=== PATIENT | female | born 1980 | race Caucasian/White ===

== ENCOUNTER 2016-12-18 15:43 | Inpatient (IN) | payer OTHER ==
[~2016-12-18] VITALS: Ht 160 cm; Wt 60.2 kg
[2016-12-18] MEDS ORDERED: LIPA1CAP4 PO (16:12)
[2016-12-18] MEDS ORDERED: IMO2 PO (16:20)
[2016-12-18] MEDS ORDERED: METH10TA2 PO (16:20)
[2016-12-18] MEDS ORDERED: AMOX1TAB9 PO (16:20)
[2016-12-18] MEDS ORDERED: UDLOM GTB (16:20)
[2016-12-18] MEDS ORDERED: FERR325T5 PO (16:21)
[2016-12-18] MEDS ORDERED: PRENAT PO (16:21)
[2016-12-18 16:22] VITALS: BP 109/63; PULSE 64; RESP 18
[2016-12-18 16:25] VITALS: BMI 23.5
[2016-12-18] MEDS ORDERED: LACTATED RINGER'S 1,000 ML IV SCH ×2 (16:30→20:50)
[2016-12-18] MEDS ORDERED: TERBUTALINE 1 MG/ML INJ SC ONE ×2 (16:30→18:00)
--- NOTE | 2016-12-18 16:52 | RADRPT ---
PROCEDURE: CERVICAL LENGTH ULTRASOUND CLINICAL INDICATION: labor at 33 weeks gestational age. TECHNIQUE: Trans-vaginal imaging of the cervical canal was performed utilizing blackman-scale imaging. Sagittal and transverse images were obtained. Trans-abdominal images were also obtained. The khadra ges were reviewed on a PACS workstation. COMPARISON: None. FINDINGS: There is a single live intrauterine . heart rate is 118 beats per minute. Position is cephalic and placenta is posterior fundal grade II. There is no placenta previa. The cervix is closed with a length of 3.8 cm. IMPRESSION: 1. Cervical length is 3.8 cough for cm. RPTAT: QQ .Nikhil Vanegas MD, Date Time Electronically viewed and signed by .Nikhil Vanegas MD, on 12/18/2016 16:52 .R/
--- NOTE | 2016-12-18 20:29 | TRIAGE ---
OB Triage Datetime Report Generated by CPN: 12/18/2016 20:28 Datetime: 12/18/2016 19:54 Vaginal Exam Membrane Status: Intact Datetime: 12/18/2016 19:20 Stage of : OB Triage Maternal Assessment Level of Consciousness: Fully Conscious Headache: Denies Blurred Vision: No Nausea/Vomiting: Denies RUQ Epigastric Pain: Denies Labor Evaluation Frequency: 3-10 Monitor Mode: External Duration (sec)2399: 30-60 Quality: Mild Pattern: Normal: <= 5 Contractions in 10 Minutes Resting Tone [place]: Relaxed Heart Rate FHR Baseline Rate: 130 Monitor Mode: External US FHR Baseline Changes: No Baseline Change Variability: Moderate 6-25 bpm Accelerations: 15X15 Decelerations: None Category: Category I Pain Assessment Pain Scale: 0 Pain Presence: None/Denies Pain Type: N/A Datetime: 12/18/2016 18:05 Labor Evaluation Frequency: 10-12 Monitor Mode: External Duration (sec)2399: 30-50 Quality: Mild Pattern: Normal: <= 5 Contractions in 10 Minutes Resting Tone [place]: Relaxed Heart Rate FHR Baseline Rate: 135 Monitor Mode: External US Variability: Moderate 6-25 bpm Decelerations: None Category: Category I Pain Assessment Pain Scale: 10 Pain Presence: Intermittent Pain Type: Cramping; Contraction Pain Goal: 3 Pain Relief Measures: Comfort Measures Datetime: 12/18/2016 17:38 Stage of : OB Triage Datetime: 12/18/2016 17:05 Labor Evaluation Frequency: 10-12 Monitor Mode: External Duration (sec)2399: 30-50 Quality: Mild Pattern: Normal: <= 5 Contractions in 10 Minutes Resting Tone [place]: Relaxed Heart Rate FHR Baseline Rate: 135 Monitor Mode: External US Variability: Moderate 6-25 bpm Decelerations: None Category: Category I Pain Assessment Pain Scale: 0 Pain Presence: Intermittent Pain Type: Cramping Pain Location: Abdomen Pain Goal: 3 Pain Relief Measures: Comfort Measures Datetime: 12/18/2016 16:10 Assessment Type: Triage Maternal Assessment Level of Consciousness: Fully Conscious DTR's/Clonus: DTRs 2+; No Clonus Headache: Denies Blurred Vision: No Respiratory Effort: Unlabored; Regular Rhythm; Equal Expansion Breath Sounds, Left: Clear and Equal Breath Sounds, Right: Clear and Equal Nausea/Vomiting: Denies RUQ Epigastric Pain: Denies Lower Extremities Edema: None Degree: None Upper Extremities Edema: None Degree: None Facial Edema: None Fall Risk Assessment History of Falling: (0) No Secondary Diagnosis: (0) No Ambulatory Aid: (0) Bedrest/Nurse Assist IV Therapy: (0) No Gait: (0) Normal/Bedrest/Immobile Mental Status: (0) Oriented to Own Ability Fall Score: 0 Fall Risk Score Definition: No Risk: No action required Datetime: 12/18/2016 16:04 Stage of : OB Triage Time of Arrival: 12/18/2016 15:40 EGA: 33.3 Arrived By: Ambulatory Arrived From: Other Unit in Hospital Chief Complaint: PT SENT IN FROM NST FOR R/O PTL Movement: Present Contractions: Denies/Absent Rupture of Membranes: Denies Vaginal Bleeding: None Vaginal Discharge: Denies Recent Sexual Intercouse: Denies Abdominal Trauma: Not Applicable Patient Complaints: Cramping; Back Pain Time Provider Notified: 12/18/2016 16:10 Provider Notified: EMMANUEL Initial Plan: IV HYDRATION/CVL/TERB/
[2016-12-18] MEDS: NIFEdipine 10 MG CAP PO SCH (21:41)
[2016-12-18] MEDS: BETAMET NA PHOS/AC(6 MG/ML) 5ML INJ IM SCH (21:41)
[2016-12-19] MEDS ORDERED: DIPHENOXYLATE/ATROPINE TAB PO PRN (01:00)
[2016-12-19] MEDS: METHADONE 10 MG TAB PO SCH ×4 (02:47→21:12)
[2016-12-19] MEDS: NIFEdipine 10 MG CAP PO SCH ×2 (03:32→09:10)
[2016-12-19] MEDS ORDERED: CREON (12k-38k-60k) 1 CAP PO SCH (07:35)
[2016-12-19] MEDS: CREON (12k-38k-60k) 1 CAP PO SCH ×4 (08:50→17:41)
[2016-12-19] MEDS ORDERED: MAGNESIUM SULFATE 4 GM/100 ML 100 ML ONE (10:12)
[2016-12-19] MEDS ORDERED: MAGNESIUM SULFATE 4 GM/100 ML 100 ML IV SCH (10:30)
[2016-12-19] MEDS: LACTATED RINGER'S 1,000 ML IV SCH ×2 (11:07→23:21)
[2016-12-19] MEDS: MAGNESIUM SULFATE 20 GM/500 ML 500 ML IV SCH ×2 (11:30→21:11)
[2016-12-19 17:41] LABS: ADD UMIC YES; URINE BILIRUBIN (Dip) NEGATIVE (NEGATIVE); URINE BLOOD (Dip) TRACE (NEGATIVE); URINE COLOR LT. YELLOW (YELLOW); URINE GLUCOSE (Dip) NEGATIVE (NEGATIVE); URINE KETONES (Dip) TRACE (NEGATIVE); URINE LEUKOCYTE ESTERASE (Dip) NEGATIVE (NEGATIVE); URINE NITRITE (Dip) NEGATIVE (NEGATIVE); URINE TOTAL PROTEIN (Dip) NEGATIVE (NEGATIVE); URINE UROBILINOGEN (Dip) 0.2 E.U./dL (0.1-1.0)
[2016-12-19 18:17] LABS: SQUAMOUS EPITHELIAL CELL,UR RARE; URINE RBCS 0-2 /HPF (0)
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
--- NOTE | 2016-12-19 20:11 | PN ---
Date/Time of Note Date/Time of Note DATE: 12/19/16 TIME: 20:10 OB Subjective Subjective Subjective No more C/O UCs OB Objective Objective Objective VSS P/E: NL on EFM minimal UCs seen OB Assessment/Plan Reason for admission: labor Other Assessment: 33 + weeks gestation Other plan: continue on magnesium sulfate JAY JONES MD Dec 19, 2016 20:11
[2016-12-19] MEDS: BETAMET NA PHOS/AC(6 MG/ML) 5ML INJ IM SCH (21:14)
[2016-12-20] MEDS: MAGNESIUM SULFATE 20 GM/500 ML 500 ML IV SCH (07:24)
[2016-12-20] MEDS: CREON (12k-38k-60k) 1 CAP PO SCH (08:38)
--- NOTE | 2016-12-20 14:08 | RADRPT ---
PROCEDURE: US OB biophysical profile. CLINICAL INDICATION: evaluation TECHNIQUE: Multiple sonographic images of the pelvis were obtained. The images were reviewed on a PACS workstation. COMPARISON: Obstetrical ultrasound from 12/18/2016 FINDINGS: There is a single viable intrauterine gestation. Cardiac activity is present with 105 beats per min zuleika. There is a vertex presentation. The placenta is fundal. There is no evidence of placental abruption. There is a normal amount of amniotic fluid with an SANDRINE = 12.3 cm. Biophysical profile: movement 2/2 tone 2/2. breathing 2/2 SANDRINE 2/2 Total 07/02 RPTAT: AA . IMPRESSION: Normal biophysical profile. Normal SANDRINE. Physician Justin Date Time Electronically viewed and signed by Physician Justin on 12/20/2016 14:07 /
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
[2016-12-20] MEDS ORDERED: LACTATED RINGER'S 1,000 ML IV SCH (14:56)
[2016-12-20] MEDS ORDERED: OXYTOCIN 30 UNITS/LR 500 ML IV PRN ×2 (15:00→23:30)
[2016-12-20] MEDS ORDERED: METHYLERGONOVINE 0.2 MG INJ IM PRN ×2 (15:00→23:30)
[2016-12-20] MEDS ORDERED: MISOPROSTOL 200 MCG TAB PR PRN ×2 (15:00→23:30)
[2016-12-20] MEDS ORDERED: CARBOPROST 250 MCG INJ IM PRN ×2 (15:00→23:30)
[2016-12-20] MEDS ORDERED: OXYTOCIN 30 UNITS/LR 500 ML IV SCH (15:00)
[2016-12-20] MEDS ORDERED: CEFAZOLIN 2 GM/50 ML (PMX) 50 ML IV SCH (15:00)
[2016-12-20 15:28] VITALS: Ht 160 cm; Wt 60.2 kg
[2016-12-20 16:33] LABS: INR 0.99; PROTIME 13.1 Sec (12.2-14.2)
[2016-12-20 16:34] LABS: PARTIAL THROMBOPLASTIN TIME 22.4 Sec (25.0-35.0)
[2016-12-20 16:37] LABS: BASOPHILS % 0.1 % (0.0-2.0); EOSINOPHILS % 0.1 % (0.0-7.0); HEMATOCRIT 34.5 % (37.0-47.0); HEMOGLOBIN 11.7 g/dl (12.0-16.0); LYMPHOCYTES # 1.1 10^3/ul (0.8-2.9); LYMPHOCYTES % 13.5 % (15.0-51.0); MEAN CORPUSCULAR HGB CONC 33.9 g/dl (32.0-37.0); MEAN CORPUSCULAR VOLUME 91.5 fl (82.0-101.0); MEAN PLATELET VOLUME 9.3 fl (7.4-10.4); MONOCYTE # 0.5 10^3/ul (0.3-0.9); MONOCYTES % 5.9 % (0.0-11.0); NEUTROPHIL # 6.8 10^3/ul (1.6-7.5); NEUTROPHILS % 80.4 % (39.0-77.0); PLATELET COUNT 149 10^3/UL (140-440); RED BLOOD COUNT 3.77 10^6/ul (4.20-5.40); RED CELL DISTRIBUTION WIDTH 12.1 % (11.5-14.5); UNCORRECTED WBC 8.5 10^3/ul (4.8-10.8); WHITE BLOOD COUNT 8.5 10^3/ul (4.8-10.8)
[2016-12-20 16:38] LABS: CONDITION 1
[2016-12-20] MEDS ORDERED: FENTAnyl 50 MCG/ML VIAL ONE (17:55)
[2016-12-20] MEDS ORDERED: PHENYLephrine (100 MCG/ML) 5ML SYG ONE (17:55)
[2016-12-20] MEDS ORDERED: morphine SULFATE/PF (10 MG/10 ML) INJ ONE (17:55)
[2016-12-20] MEDS ORDERED: LIDOCAINE 1% (MDV) 20 ML INJ ONE (17:57)
--- NOTE | 2016-12-20 18:07 | QN ---
Documentation Comment patient had perinatology consult who recommended to proceed with delivering the baby via section. FHTs have low baseline and perinatologist remains concerned about the baseline and recommending delivery LALITO. will proceed with primary C/S JAY JONES MD Dec 20, 2016 18:07
--- NOTE | 2016-12-20 19:04 | RADRPT ---
PROCEDURE: XR Chest. CLINICAL INDICATION: New right central venous line in place. TECHNIQUE: Single frontal view of the chest was obtained COMPARISON: None FINDINGS: New right central venous line in place with tip in the superior vena cava. The heart and mediastinum are within normal limits. The lungs are clear. There is no pleural effusion or pneumothorax. IMPRESSION: New right central venous line in place with tip in the superior vena cava. RPTAT: UU Physician Jania Date Time Electronically viewed and signed by Physician Jania on 12/20/2016 19:04 RS/
--- NOTE | 2016-12-20 19:48 | OPR ---
Operative Report Planned Procedure Procedure date Dec 20, 2016 Procedure(s) primary C/S Performed by: JAY JONES MD Assisting provider: JESUS BRANCH MD Anesthesiologist: AMAIRANI GARCIA DO Pre-procedure diagnosis 33 + weeks labor category 2-3 FHTs Anesthesia Type: spinal Procedure Description Under satisfactory anaesthesia a Pfannenstiel incision was made two fingerbreadth above and parallel to the symphysis of pubis. Incision was extended laterally to the border of the Recti muscles on either sides. Incision was carried down with sharp and blunt dissection until fascia was reached. Anterior Recti muscle fascia was incised in mid portion and incision extended laterally to the border of skin incision. Fascia was mobilized from muscle superiorly and Recti muscles were from midline using sharp and blunt dissection. Peritoneum was visualized; Avoiding bowel and bladder it was incised . Incision was extended superiorly and inferiorly. Bladder blade was placed. Posterior peritoneum covering the lower segment of the uterus and lower segment of the uterus were incised. Incision was extended laterally to the border of Round Lig. on either sides and baby was delivered from OP. position . Amniotic fluid appeared clear. Cord blood was obtained and cord had 3 vessels . Placenta was delivered spontaneously and appeared intact and complete. Intrauterine cavity was rubbed with a laparotomy sponge. Uterine incision was closed in 2 layers using running stitches of No1 Monocryl. Hemostasis appeared secure. Ovaries and Fallopian tubes were within normal limits. Announcing needle, lap sponge and instrument count to be correct abdomen was closed in layers as follows: Peritoneum and Recti muscles with running stitches of 20 Vicryl. Fascia with running stitch of No 1 PDS. Subcutaneous tissue with running stitches of 20 Chromic and skin was closed using val. Patient tolerated the procedure well and was transferred to [facility] in good condition. Post-Procedure Post-procedure diagnosis S/P C/S Findings: Live Baby Specimen removed: No Complications: None Pt Condition post procedure: stable Disposition: PACU Physician Certification I, the undersigned physician, hereby certify that I have discussed the procedure described in this consent form with this patient (or the patient's legal community health representative), including: * The risk and benefits of the procedure; * Any adverse reactions that may reasonably be expected to occur; * Any alternative efficacious methods of treatment which may be medically viable ; * The potential problems that may occur during recuperation; * Potential for blood transfusion and associated risks/benefits; and * Any research or economic interest I may have regarding this treatment. I further certify that the patient/legally responsible person was encouraged to ask question and that all questions were answered. JAY JONES MD Dec 20, 2016 19:48
[2016-12-20 20:08] LABS: POTASSIUM 3.3 mmol/L (3.5-5.1)
[2016-12-20 20:10] LABS: CREATININE 0.49 mg/dl (0.44-1.00)
[2016-12-20 20:11] LABS: CALCIUM 6.7 mg/dl (8.4-10.2)
[2016-12-20] MEDS ORDERED: ONDANSETRON 4 MG INJ IV PRN (20:30)
[2016-12-20] MEDS ORDERED: HYDROmorphONE 1 MG/ML SYG IV PRN ×2 (20:30)
[2016-12-20] MEDS ORDERED: DIPHENHYDRAMINE 50 MG INJ IV PRN (20:30)
[2016-12-20] MEDS ORDERED: NALOXONE (0.4 MG/ML) INJ IV PRN (20:30)
[2016-12-20] MEDS ORDERED: ZOLPIDEM 5 MG TAB PO PRN (20:30)
[2016-12-20] MEDS: KETOROLAC 30 MG INJ IV PRN (22:08)
[2016-12-20] MEDS: METHADONE 10 MG TAB PO SCH (22:30)
[2016-12-20] MEDS ORDERED: LANOLIN 7 GM TUBE TOP PRN (23:30)
[2016-12-20] MEDS ORDERED: NA PHOSPHATE/BIPHOS 133 ML ENEMA PR PRN (23:30)
[2016-12-20] MEDS ORDERED: ACETAMINOPHEN/CODEINE #3 TAB PO PRN (23:30)
[2016-12-21] VITALS (8 sets, daily range): BP systolic 96–114; BP diastolic 53–71; PULSE 56–60; RESP 16–20
[2016-12-21] MEDS: CEFAZOLIN 2 GM/50 ML (PMX) 50 ML IV SCH ×3 (00:29→15:56)
[2016-12-21] MEDS: LACTATED RINGER'S 1,000 ML IV SCH ×4 (02:36→23:21)
[2016-12-21] MEDS: CLINDAMYCIN 300 MG CAP PO SCH ×4 (05:35→17:54)
[2016-12-21] MEDS: IBUPROFEN 800 MG TAB PO SCH ×3 (05:37→22:08)
[2016-12-21] MEDS: CREON (12k-38k-60k) 1 CAP PO SCH ×3 (07:54→17:55)
[2016-12-21 07:55] LABS: BASOPHILS % 0.3 % (0.0-2.0); EOSINOPHILS % 0.2 % (0.0-7.0); HEMATOCRIT 30.8 % (37.0-47.0); HEMOGLOBIN 10.5 g/dl (12.0-16.0); LYMPHOCYTES # 1.5 10^3/ul (0.8-2.9); LYMPHOCYTES % 19.7 % (15.0-51.0); MEAN CORPUSCULAR HEMOGLOBIN 31.4 pg (29.0-33.0); MEAN CORPUSCULAR HGB CONC 34.2 g/dl (32.0-37.0); MEAN CORPUSCULAR VOLUME 91.7 fl (82.0-101.0); MEAN PLATELET VOLUME 9.4 fl (7.4-10.4); MONOCYTE # 0.5 10^3/ul (0.3-0.9); MONOCYTES % 6.5 % (0.0-11.0); NEUTROPHIL # 5.7 10^3/ul (1.6-7.5); NEUTROPHILS % 73.3 % (39.0-77.0); PLATELET COUNT 139 10^3/UL (140-440); RED BLOOD COUNT 3.36 10^6/ul (4.20-5.40); RED CELL DISTRIBUTION WIDTH 12.6 % (11.5-14.5); UNCORRECTED WBC 7.7 10^3/ul (4.8-10.8); WHITE BLOOD COUNT 7.7 10^3/ul (4.8-10.8)
[2016-12-21] MEDS: KETOROLAC 30 MG INJ IV PRN ×2 (07:55→14:58)
[2016-12-21 08:01] LABS: CONDITION 1
[2016-12-21] MEDS: MULTIVIT/MIN/FOLATE/IRON/PREN TAB PO SCH (08:09)
[2016-12-21] MEDS: LOPERAMIDE 2 MG CAP PO SCH ×2 (08:11→20:57)
[2016-12-21] MEDS: SENNA/DOCUSATE NA (8.6MG/50MG) TAB PO SCH ×2 (08:12→21:00)
[2016-12-21] MEDS: METHADONE 10 MG TAB PO SCH ×2 (10:10→20:57)
--- NOTE | 2016-12-21 18:26 | PN ---
Date/Time of Note Date/Time of Note DATE: 12/21/16 TIME: 18:25 Assessment/Plan VTE Prophylaxis VTE Prophylaxis Intervention: ambulation Lines/Catheters IV [facility]from [facility] Central Line Assessment/Plan Assessment/Plan POD # 1 S/PC/S will advance diet and ambulate Subjective 24 Hr Interval Summary passing flatus Exam/Review of Systems Vital Signs Vitals Vital Signs Date Time Temp Pulse Resp B/P Pulse Ox O2 Delivery O2 Flow Rate FiO2 12/21/16 16:05 97 21 12/21/16 16:00 98.1 18 111/71 Room Air 12/21/16 12:00 60 Intake and Output 12/20/16 12/20/16 12/21/16 15:00 23:00 07:00 Intake Total 250 ml 725 ml Output Total 1500 ml 280 ml Balance -1250 ml 445 ml Exam Free Text/Dictation Abdomen: soft BS+ Results Result Diagram: 12/21/16 0635 12/20/16 1600 JAY JONES MD Dec 21, 2016 18:26
[2016-12-21] MEDS: OXYCODONE/ACETAMINOPHEN (5/325) TAB PO PRN (20:57)
[2016-12-22] MEDS: CLINDAMYCIN 300 MG CAP PO SCH ×5 (00:06→22:55)
[2016-12-22] MEDS: OXYCODONE/ACETAMINOPHEN (5/325) TAB PO PRN ×2 (03:53→11:35)
[2016-12-22 04:00] VITALS: BP 94/65; PULSE 54; RESP 19
[2016-12-22] MEDS: IBUPROFEN 800 MG TAB PO SCH ×3 (05:27→22:55)
[2016-12-22 07:45] VITALS: BP 115/76; PULSE 66; RESP 18
[2016-12-22] MEDS: CREON (12k-38k-60k) 1 CAP PO SCH ×3 (08:55→18:13)
[2016-12-22] MEDS: LOPERAMIDE 2 MG CAP PO SCH ×2 (08:56→21:00)
[2016-12-22] MEDS: METHADONE 10 MG TAB PO SCH ×2 (08:56→21:07)
[2016-12-22] MEDS: MULTIVIT/MIN/FOLATE/IRON/PREN TAB PO SCH (08:56)
[2016-12-22] MEDS: SENNA/DOCUSATE NA (8.6MG/50MG) TAB PO SCH ×2 (09:00→21:00)
--- NOTE | 2016-12-22 15:08 | DS ---
Date/Time of Note Date/Time of Note home next day DATE: 12/22/16 TIME: 15:06 Obstetrical Discharge Record Final Diagnosis Final Diagnosis: delivered Other Final Diagnosis S/P C/S Section Section: Primary Primary Indication category 3 FHTs perinatology recommendation Complications Labor, Other (poor growth ) Tocolytics: Magnesium Sulfate Condition on Discharge Physical Assessment Last Vitals: see nurses notes Voiding: Yes Bowel Movement: Yes Breast: Soft, non-tender, Filling Fundus: Firm Abdomen and Incision: soft BS + incision: healing well Calf Tenderness: No Patient Condition: Good JAY JONES MD Dec 22, 2016 15:08
--- NOTE | 2016-12-22 15:16 | DS ---
Date/Time of Note Date/Time of Note home next day DATE: 12/22/16 TIME: 15:09 Discharge Summary Admission/Discharge Info Admit Date/Time Dec 18, 2016 at 20:10 Discharge Date/Time 12/23/2016 Final Diagnosis S/P C/S Patient Condition: Good Procedures primary C/S Hx of Present Illness 36 y/o female underwent primary C/S per perinatologist recommendation Hospital Course 2-3 days in clinic for staple removal Home Meds Reported Medications Ferrous Sulfate (Ferrous Sulfate) 325 Mg Tablet., 325 MG PO 12/18/16 Multivit/Min/Fol Ac/Iron/Pren* ( S*) 1 Tab Tab, 1 TAB PO DAILY, TAB 12/18/16 Loperamide Hcl* (Loperamide Hcl*) 2 Mg Cap, 2 MG PO BID, CAP 12/18/16 Diphenoxylate Hcl-Atropine* (Lomotil*) 5 Ml Soln, 5 ML GTB BID, ML 12/18/16 Methadone Hcl* (Methadone*) 10 Mg Tab, 20 MG PO BID, TAB 12/18/16 Amoxicillin/Potassium Clav (Amox-Clav 500-125 mg Tablet) 500-125 mg Tab, 1 TAB PO Q8 for 30 Days, TAB 12/18/16 Gtyedg-Igsuqjcr-Ggnoglw* (Iris EWING* 12,000) 12,000 L-38,000-60,000 Unit Capsule., 1 CAP PO WITH MEALS, CAP 12/18/16 JAY JONES MD Dec 22, 2016 15:16
--- NOTE | 2016-12-22 15:19 | PD.PPDC ---
DEPOSITION REPORTER Discharge Instruction Provider Information Physician Information 36 y/o female had primary C/S Diagnosis Final Diagnosis: S/P C/S Condition Patient Condition: Good Diet Diet: Resume Regular Diet Activity/Restrictions Activity: March Shower Restrictions: No Exercising No Lifting Nothing in the Vagina Return to Work or School: Feb 18, 2017 Follow-up Follow-up with Physician: 3, 4, Day/Days (in clinic for staple removal ) Return to clinic for [employer]CHITECT Instructions: Fever greater than 101 Chills Worsening abdominal pain OB Instructions: Depression Comment: pelvic rest and no hard activity x 2 months Surgical Instructions: Incisional Drainage Incisional Redness JAY JONES MD Dec 22, 2016 15:19
[2016-12-22] MEDS ORDERED: IBUP800T25 PO (15:21)
[2016-12-22] MEDS ORDERED: Oxycodone/Acetamin (5/325) PO (15:21)
[2016-12-22 16:13] VITALS: BP 111/71; PULSE 61; RESP 19
[2016-12-22 20:30] VITALS: BP 107/63; PULSE 66; RESP 18
[2016-12-23 03:50] VITALS: BP 116/73; PULSE 68; RESP 19
[2016-12-23] MEDS: IBUPROFEN 800 MG TAB PO SCH ×2 (05:53→14:20)
[2016-12-23] MEDS: CLINDAMYCIN 300 MG CAP PO SCH ×2 (05:53→12:21)
[2016-12-23] MEDS: CREON (12k-38k-60k) 1 CAP PO SCH ×2 (08:05→12:22)
[2016-12-23] MEDS ORDERED: DIPHTH/TET/ACEL PERTUSS (ADULT) 0.5 ML VIAL IM* ONE (09:00)
[2016-12-23] MEDS ORDERED: MEASLES,MUMPS,RUBELLA VACCINE INJ SC* ONE (09:00)
[2016-12-23 11:13] VITALS: BP 114/75; PULSE 75; RESP 18
[2016-12-23] MEDS: MULTIVIT/MIN/FOLATE/IRON/PREN TAB PO SCH (11:13)
[2016-12-23] MEDS: OXYCODONE/ACETAMINOPHEN (5/325) TAB PO PRN (11:13)
[2016-12-23] MEDS: METHADONE 10 MG TAB PO SCH (11:13)
[2016-12-23] MEDS: SENNA/DOCUSATE NA (8.6MG/50MG) TAB PO SCH ×2 (11:14→11:16)
[2016-12-23] MEDS: LOPERAMIDE 2 MG CAP PO SCH (11:16)
--- NOTE | 2016-12-23 14:01 | RADRPT ---
Vent Rate: 61 bpm RR Interval: 0 msec CO Interval: 126 msec QRS Duration: 76 msec QT Interval: 452 msec QTC Interval: 455 msec P-R-T [place]: 57 - 60 - 41 degrees Sinus rhythm with marked sinus arrhythmia Otherwise normal ECG Electronically Signed By: Chinedu Mclean [id number]
[2016-12-23 15:50] VITALS: BP 110/68; PULSE 70; RESP 16
[2016-12-24] MEDS ORDERED: INFLUENZA VIRUS VACCINE 0.5 ML (DISPENSING) IM* ONE (09:00)
--- NOTE | 2016-12-24 14:27 | NSTRPT ---
NST Information Datetime Report Generated by CPN: 12/24/2016 14:27 Datetime: 12/18/2016 13:56 NST Information EGA: 33.3 Datetime: 12/18/2016 13:50 Test Number: ` Time on Monitor: 12/18/2016 14:21 Time off Monitor: 12/18/2016 14:48 NST Duration (Min): 27 Reason for NST: Other Reason for NST Other: SGA Test and Monitor Explained: Monitor Explained; Test Explained; Verbalized Understanding Pulse: 71 Resp: 18 SBP: 106 DBP: 69 Test Evaluation Patient States Movement: Present Contraction Frequency: Q3-7, pt states cramping and low back pain FHR Baseline : 120 Variability: Moderate 6-25bpm Accelerations: 15X15 Decelerations: None FHR Category: Category I NST Results: Reactive Comments: To u/s, SANDRINE 15.0, Cephalic, Cervix 2.5cm Transabdominally 1520-Report called to Dr Beasley, order received to send to triage for eval of PTL. Report called to Bianca. 1525-POC explained to pt, states understanding, follow up NST appt given, pt to jeni berumen at this time. Electronically Signed By E-Signature: with User ID: [id number]
== END 2016-12-23 16:00 | disposition home or self-care (01) | DRG 765 ==
LOC: OBT 15:43 → L-D 15:45 → OBG 20:10 → OBT 20:10 → L-D 12-20 14:51 → PP1 12-20 23:50
PROVIDERS: ADMIT Obstetrics & Gynecology; ATTEND Obstetrics & Gynecology
PROC: 10D00Z1 Extraction of Products of Conception, Low, Open Approach (ICD-10-PCS; principal; 2016-12-18)
DX: O76 Abnormality in fetal heart rate and rhythm complicating labor and delivery (principal); O60.14X0 Preterm labor third trimester with preterm delivery third trimester, not applicable or unspecified; Z3A.33 33 weeks gestation of pregnancy; Z37.0 Single live birth; O36.5930 Maternal care for other known or suspected poor fetal growth, third trimester, not applicable or unspecified; Z79.891 Long term (current) use of opiate analgesic
CPT/HCPCS: 36415; 71010; 76817; 76818; 80048; 81001; 81003; 83735; 85025; 85610; 85730; 86592; 86850; 86900; 86901; 86920; 87086; 88307; 90715; 93005; 94760; 96360; 96361; 96372; 99464; C1751; G0463; J0690; J0702; J1170; J1885; J2274; J2370; J2590; J3010; J3105; J3475; J7120

== ENCOUNTER 2017-11-24 11:40 | Emergency (ER) | END 2017-11-24 18:50 | disposition home or self-care (01) ==

== ENCOUNTER 2017-11-25 22:47 | Emergency (ER) | END 2017-11-26 02:41 | disposition home or self-care (01) ==